=== PATIENT | female | born 1980 | race Caucasian/White ===

== ENCOUNTER 2016-10-21 23:55 | Emergency (ER) | payer SELFPAY ==
[2016-10-22 04:33] VITALS: BP 110/66
== END 2016-10-22 04:33 | disposition home or self-care (01) ==
LOC: ED 23:55
DX: S30.0XXA Contusion of lower back and pelvis, initial encounter (principal); W17.89XA Other fall from one level to another, initial encounter; Y93.89 Activity, other specified; Y99.8 Other external cause status; Y92.89 Other specified places as the place of occurrence of the external cause
CPT/HCPCS: J1885